=== PATIENT | female | born 1945 | race Caucasian/White ===

== ENCOUNTER 2018-05-16 10:21 | Emergency (ER) | payer OTHER, BC ==
[~2018-05-16] VITALS: Ht 157.5 cm; Wt 87.2 kg
[2018-05-16 10:26] VITALS: TEMP 37; Ht 157.5 cm; Wt 87.2 kg
[2018-05-16] MEDS ORDERED: SODIUM CHLORIDE 0.9% 1000ML 1,000 ML IV STA (11:08)
[2018-05-16] MEDS ORDERED: ONDANSETRON INJ 2 MG/ML 2 ML VIAL IV STA (11:08)
[2018-05-16] MEDS ORDERED: FENTANYL CITRATE INJ 50 MCG/1 ML 2 ML VIAL IV STA (11:08)
--- NOTE | 2018-05-16 11:13 | EMERGENCY ROOM VISIT NOTE ---
History Report prepared by Judith: Sara Houston Under the Supervision of: Dr. Deborah Chavez M.D. First contact with patient: 10:51 Chief Complaint: FALL Stated Complaint: FALL History of Present Illness The patient is a 72 year old female who presents to the Emergency Room with a fall occurring shortly prior to arrival. Per , the patient tripped and fell outside on cement. The patient states that her head hit the wall and then her shoulder hit the wall. She reports that she landed on her shoulder on the ground. The patient states that she was holding a coffee so she did not put her hand out when she fell. Her states that the patient's lip was bleeding and states that one of her plates in her mouth broke. The patient complains of back pain but denies having abdominal pain. She reports that breathing exacerbates her pain. Per , the patient reports that she cannot move her shoulder, she has a heart condition and arthritis. Her states that the patient also has a history of open heart surgery and a bypass surgery. The patient denies a history of back problems. Per , the patient smokes a pack of cigarettes per day and has bronchitis. Nursing staff reports that the patient has a history of cardiac problems. The patient denies a history of kidney problems. Source of History: patient, spouse/significant other Onset: shortly prior to arrival Position: other (generalized) Quality: other (fall) Modifying Factors (Worsening): breathing Associated Symptoms: + back pain, No abdominal pain Review of Systems See HPI for pertinent positives & negatives. A total of 10 systems reviewed and were otherwise negative. Past Medical & Surgical Medical Problems: (1) Arthritis Surgical Problems: (1) History of open heart surgery Family History Patient reports no known family medical history. Social History Smoking Status: Current Every Day Smoker Marital Status: Housing Status: lives with significant other Occupation Status: retired Current/Historical Medications Scheduled Amoxicillin & Pot Clavulanate (Augmentin 875-125 mg), 875 MG PO BID Aspirin (Aspirin Ec), 81 MG PO DAILY Atorvastatin (Lipitor), 10 MG PO DAILY Cefuroxime Axetil (Cefuroxime Axetil), 250 MG PO BID Furosemide (Lasix), 40 MG PO 3XWK Hyoscyamine Sulfate (Levsin), 0.125 MG PO TID Levothyroxine Sodium (Levothyroxine Sodium), 125 MCG PO DAILY Lisinopril (Lisinopril), 10 MG PO DAILY Metoprolol Tartrate (Lopressor) (Lopressor), 25 MG PO BID Pantoprazole (Protonix), 40 MG PO DAILY Potassium Ext Rel (Klor-Con), 20 MEQ PO 3XWK Prednisone (Prednisone Tab), 20 MG PO BID Warfarin Sod (Jantoven), 5 MG PO DAILY Scheduled PRN Hydrocodone/Acetaminophen 5MG/325MG ([place] 5MG/325MG), 1 TABLET PO Q6 PRN for Pain Lidocaine (Lidocaine), 1 PATCH TD QD PRN for Pain Ondasetron Odt (Zofran Odt), 4 MG SL TID PRN for Nausea Tramadol (Ultram), 50 MG PO TID PRN for Pain Allergies Coded Allergies: No Known Allergies (Unverified , 05/16/18) Physical Exam Vital Signs Date Time Temp Pulse Resp B/P (MAP) Pulse Ox O2 Delivery O2 Flow Rate FiO2 05/16/18 15:38 72 18 121/61 94 05/16/18 14:00 67 18 138/64 92 Room Air 05/16/18 12:25 61 20 126/68 96 Nasal Cannula 2.0 05/16/18 12:10 72 05/16/18 10:26 37.0 74 24 142/77 94 Room Air Physical Exam Vital signs reviewed. General: Generally well-appearing 72-year-old female, in some discomfort. Boarded and collared. HEENT: No scleral icterus, PERRLA, neck supple. Contusion noted to the upper lip, dentures removed, noted to be cracked to the upper set. No active bleeding in mouth. Small abrasion to the right scalp. Cardiovascular: Regular rate and rhythm, no extra sounds. Pulmonary: Rhonchorous breath sounds bilaterally, normal work of breathing. Abdomen: Soft, nontender, nondistended, positive bowel sounds. Musculoskeletal: Cervical, thoracic and lumbar spine are palpated, tenderness to the c spine and lumbar spine diffusely, no step-off or deformity appreciated. No swelling. No pain with pelvic rocking. Pain to any palpitation or range of motion to the left shoulder. Neurologic: Patient awake alert and oriented x 3, full strength in all 4 extremities. Skin: Warm, dry, no rash. No significant abrasions/laceration. Medical Decision & Procedures ER Provider Diagnostic Interpretation: Radiology results as stated below per my review and radiologist interpretation: L SHOULDER MIN 2 VIEWS ROUTINE CLINICAL HISTORY: Left shoulder pain following fall. COMPARISON: None FINDINGS: Alignment of the left acromioclavicular and glenohumeral joints is anatomic. There is an acute comminuted mildly displaced proximal left humeral fracture that involves the greater tuberosity and extends to the humeral neck. IMPRESSION: Acute comminuted mildly displaced proximal left humeral fracture that involves the greater tuberosity extends to the humeral neck. Electronically signed by: Adam Nelson M.D. 05/16/2018 11:55 AM Dictated Date/Time: 05/16/2018 11:[address] OF THE ABDOMEN AND PELVIS WITH CONTRAST CLINICAL HISTORY: Trauma. COMPARISON STUDY: None. TECHNIQUE: Following IV administration of 91 mL of Optiray-320, axial images of the abdomen and pelvis were obtained from the lung bases to the proximal femurs. Images were reviewed in the axial, sagittal, and coronal planes. IV contrast was administered without complication. A dose lowering technique was utilized adhering to the principles of ALARA. Oral contrast was administered. FINDINGS: No hemoperitoneum or pneumoperitoneum is present. The chest CT will be reported separately. Mild biliary ductal dilatation is likely related to prior cholecystectomy. There is no evidence for traumatic injury to the liver, spleen, adrenal glands, kidneys or pancreas. Caliber and wall thickness of small and large bowel are normal. IVC filter is in place. There is extensive atherosclerotic plaque of the aortoiliac system. No acute pelvic fracture is identified. When counting from above, there are T12 and L1 compression fractures with mild retropulsion at the L1 level. These fractures are likely old. No acute lumbar spine fractures identified. IMPRESSION: 1. No acute traumatic findings within the abdomen or pelvis. 2. T12 and L1 compression fractures which are likely old. Electronically signed by: Adam Nelson M.D. 05/16/2018 12:51 PM Dictated Date/Time: 05/16/2018 12:[address] OF THE CERVICAL SPINE WITHOUT CONTRAST CLINICAL HISTORY: Neck pain following fall. COMPARISON STUDY: No previous studies for comparison. TECHNIQUE: Helical axial images of the cervical spine were obtained without IV contrast. Sagittal and coronal reconstructions were viewed. A dose lowering technique was utilized adhering to the principles of ALARA. FINDINGS: The patient is status post C6-C7 fusion. Craniocervical junction is intact. There is no acute cervical spine fracture or subluxation. There is no prevertebral edema. Chest CT will be reported separately. Mild to moderate multilevel degenerative disc disease and facet arthrosis is present. Right mastoid air cells are partially opacified. IMPRESSION: 1. No acute cervical spine fracture or subluxation. 2. Status post C6-C7 fusion. Electronically signed by: Adam Nelson M.D. 05/16/2018 12:26 PM Dictated Date/Time: 05/16/2018 12:[address] OF THE CHEST WITH IV CONTRAST CLINICAL HISTORY: Fall, cough, CHI. COMPARISON STUDY: No previous studies for comparison. TECHNIQUE: Following IV administration of 91 mL of Optiray-320, helical axial images of the chest were obtained. Sagittal and coronal reconstructions were viewed as well as maximal intensity projections on an independent 3-D workstation. A dose lowering technique was utilized adhering to the principles of ALARA. FINDINGS: There is no evidence for traumatic injury to the thoracic aorta. No pneumothorax is present. There may be a trace hyperdense left pleural effusion versus pleural thickening. Mild emphysema is noted. No pulmonary contusion is present. Subpleural opacities reflect atelectasis or scarring. Note is made of an acute mildly displaced comminuted proximal left humeral fracture. There are median sternotomy wires and postoperative findings consistent with bypass grafting. Heart is moderately enlarged. There is no pericardial effusion. Note is made of a T10 compression fracture with 30% loss of vertebral body height. There is no significant retropulsion. No extension into the posterior elements is noted. A mild superior plate T12 compression fracture is likely old. There is mild emphysema. IMPRESSION: 1. No evidence of traumatic injury to the thoracic aorta. 2. No pneumothorax. 3. Apparent left pleural thickening. Alternatively, this could reflect a trace left hemothorax. No pneumothorax. No acute left rib fractures identified. 4. Mild T5 compression fracture without significant retropulsion. This fracture is likely acute. 5. Mild T12 compression fracture which is likely old. 6. Acute mildly displaced comminuted proximal left humeral fracture. Electronically signed by: Adam Nelson M.D. 05/16/2018 12:38 PM Dictated Date/Time: 05/16/2018 12:[address] OF THE HEAD WITHOUT CONTRAST CLINICAL HISTORY: L shoulder pain, fall, coumadin. COMPARISON STUDY: No previous studies for comparison. TECHNIQUE: Helical axial images of the head were obtained without IV contrast. Automated exposure control was utilized for the study. A dose lowering technique was utilized adhering to the principles of ALARA. FINDINGS: No acute intracranial hemorrhage, midline shift or mass effect is present. Ventricular system is unremarkable for age. Basilar cisterns are patent. There are no extra-axial collections. There is mild bilateral basal ganglia calcification. There is no calvarial fracture. There is mild age indeterminate deformity of the left nasal bone. Right maxillary sinus is diminutive with mucosal thickening. Secretions within the left maxillary sinus with small air-fluid level are noted. Right mastoid air cells are partially opacified. IMPRESSION: 1. No acute intracranial findings. 2. No calvarial fracture. 3. Age-indeterminate deformity of the left nasal bone. 4. Partially opacified right mastoid air cells. 5. Sinus opacification, as described above. Electronically signed by: Adam Nelson M.D. 05/16/2018 12:23 PM Dictated Date/Time: 05/16/2018 12:[address] CLINICAL HISTORY: fall, back pain COMPARISON STUDY: No previous studies for comparison. TECHNIQUE: Axial images of the lumbar spine were obtained. Sagittal and coronal reconstructions were viewed. FINDINGS: The CT of the abdomen and pelvis will be reported separately. When counting from above, there mild compression fractures of T12 and L1. There is mild retropulsion at the L1 level. These fractures are likely old. No acute lumbar spine fracture is identified. Moderate multilevel degenerative disc disease and facet arthrosis is present. IMPRESSION: 1. No acute lumbar spine fracture or subluxation. 2. T12 and L1 compression fractures which are likely old. Electronically signed by: Adam Nelson M.D. 05/16/2018 12:53 PM Dictated Date/Time: 05/16/2018 12:[address] CLINICAL HISTORY: Fall. COMPARISON STUDY: No previous studies for comparison. TECHNIQUE: Axial images of the thoracic spine were obtained. Sagittal and coronal reconstructions were viewed. FINDINGS: Note is made of a mild T5 compression fracture with 30% loss of vertebral body height. There is no retropulsion or extension into the posterior elements. There is mild prevertebral infiltration. A mild compression fracture involving the superior plate of T12 is likely old. The chest CT will be reported separately. IMPRESSION: 1. Mild T5 compression fracture with 30% loss of vertebral body height. This fracture is likely acute. 2. Mild T12 compression fracture which is likely old. Electronically signed by: Adam Nelson M.D. 05/16/2018 12:44 PM Dictated Date/Time: 05/16/2018 12:42 PM Laboratory Results 05/16/18 10:39 Red Blood Count 4.35, Mean Corpuscular Volume 87.4, Mean Corpuscular Hemoglobin 28.3, Mean Corpuscular Hemoglobin Concent 32.4, Mean Platelet Volume 10.5, Neutrophils (%) (Auto) 63.1, Lymphocytes (%) (Auto) 25.5, Monocytes (%) (Auto) 8.7, Eosinophils (%) (Auto) 1.3, Basophils (%) (Auto) 0.1, Neutrophils # (Auto) 12.39, Lymphocytes # (Auto) 5.00, Monocytes # (Auto) 1.71, Eosinophils # (Auto) 0.26, Basophils # (Auto) 0.02 05/16/18 10:39 Test 05/16/18 10:39 05/16/18 12:35 White Blood Count 19.63 K/uL (4.8-10.8) Red Blood Count 4.35 M/uL (4.2-5.4) Hemoglobin 12.3 g/dL (12.0-16.0) Hematocrit 38.0 % (37-47) Mean Corpuscular Volume 87.4 fL (80-100) Mean Corpuscular Hemoglobin 28.3 pg (25-34) Mean Corpuscular Hemoglobin Concent 32.4 g/dl (32-36) Platelet Count 330 K/uL (130-400) Mean Platelet Volume 10.5 fL (7.4-10.4) Neutrophils (%) (Auto) 63.1 % Lymphocytes (%) (Auto) 25.5 % Monocytes (%) (Auto) 8.7 % Eosinophils (%) (Auto) 1.3 % Basophils (%) (Auto) 0.1 % Neutrophils # (Auto) 12.39 K/uL (1.4-6.5) Lymphocytes # (Auto) 5.00 K/uL (1.2-3.4) Monocytes # (Auto) 1.71 K/uL (0.11-0.59) Eosinophils # (Auto) 0.26 K/uL (0-0.5) Basophils # (Auto) 0.02 K/uL (0-0.2) RDW Standard Deviation 45.4 fL (36.4-46.3) RDW Coefficient of Variation 14.5 % (11.5-14.5) Immature Granulocyte % (Auto) 1.3 % Immature Granulocyte # (Auto) 0.25 K/uL (0.00-0.02) Blood Smear Review Prothrombin Time 11.3 SECONDS (9.0-12.0) Prothromb Time International Ratio 1.1 (0.9-1.1) Activated Partial Thromboplast Time 22.2 SECONDS (21.0-31.0) Partial Thromboplastin Ratio 0.9 Anion Gap 8.0 mmol/L (3-11) Est Creatinine Clear Calc Drug Dose 42.9 ml/min Estimated GFR () 52.6 Estimated GFR (Non- 45.4 BUN/Creatinine Ratio 24.7 (10-20) Calcium Level 8.9 mg/dl (8.5-10.1) Magnesium Level 1.2 mg/dl (1.8-2.4) Total Bilirubin 0.5 mg/dl (0.2-1) Direct Bilirubin 0.2 mg/dl (0-0.2) Aspartate Amino Transf (AST/SGOT) 22 U/L (15-37) Alanine Aminotransferase (ALT/SGPT) 21 U/L (12-78) Alkaline Phosphatase 76 U/L (45-117) Total Protein 6.8 gm/dl (6.4-8.2) Albumin 3.0 gm/dl (3.4-5.0) Urine Color YELLOW Urine Appearance CLEAR (CLEAR) Urine pH 5.0 (4.5-7.5) Urine Specific [place] 1.037 (1.000-1.030) Urine Protein NEG (NEG) Urine Glucose (UA) NEG (NEG) Urine Ketones TRACE (NEG) Urine Occult Blood NEG (NEG) Urine Nitrite NEG (NEG) Urine Bilirubin NEG (NEG) Urine Urobilinogen NEG (NEG) Urine Leukocyte Esterase NEG (NEG) Laboratory results per my review. Medications Administered Medications (Trade) Dose Ordered Sig/Kary Route Start Time Stop Time Status Last Admin Dose Admin Sodium Chloride 1,000 ml @ 125 mls/hr Q8H STAT IV 05/16/18 11:08 05/16/18 16:41 DC 05/16/18 12:21 125 MLS/HR Fentanyl Citrate (Fentanyl Inj) 50 mcg NOW STAT IV 05/16/18 11:08 05/16/18 11:12 DC 05/16/18 11:19 50 MCG Ondansetron HCl (Zofran Inj) 4 mg NOW STAT IV 05/16/18 11:08 05/16/18 11:12 DC 05/16/18 11:18 4 MG Magnesium Sulfate (Magnesium Sulfate 1gm / D5W) 2 gm NOW STAT IV 05/16/18 12:09 05/16/18 12:11 DC 05/16/18 12:18 2 GM Fentanyl Citrate (Fentanyl Inj) 50 mcg Q1H PRN IV 05/16/18 12:15 05/16/18 16:41 DC 05/16/18 12:18 50 MCG Hydromorphone HCl (Dilaudid Inj) 0.5 mg NOW STAT IV 05/16/18 13:38 05/16/18 13:40 DC 05/16/18 13:47 0.5 MG Acetaminophen/ Hydrocodone Bitart ([place] 5/325mg Home Pack) 1 homepack UD ONCE PO 05/16/18 15:00 05/16/18 15:01 DC 05/16/18 15:00 1 HOMEPACK ECG Per My Interpretation Indication: other (trauma) Rate (beats per minute): 67 Rhythm: sinus rhythm Findings: nonspecific-ST abn (Lateral), no acute ischemic change, other (short GA interval, T wave abnormality in inferior leads) ED Course 1103: Past medical records reviewed. The patient was evaluated in room B2. A complete history and physical examination was performed. 1337: I reevaluated the patient and updated her. 1415: I discussed findings with the patient. She verbalized agreement of the treatment plan. She was discharged home. Medical Decision Differential diagnosis: Etiologies such as fracture, dislocation, intra-abdominal, pneumothorax, intrathoracic , intracranial, neurologic, as well as other traumatic pathologies were entertained. This patient was evaluated and appeared to be in no significant distress. IV access was obtained and laboratory work was drawn. The patient was placed on the residential monitor and found to be in a normal sinus rhythm. She was hydrated with normal saline solution. The patient was kitchen scanned including CT scan of the cervical, thoracic and lumbar spine. There is evidence of a T5 compression fracture that is likely the source of the patient's back pain. She does have some evidence of sinusitis as well as a right humeral head fracture. Patient tolerated an ambulation trial. She will have the assistance of her family. She was feeling somewhat improved after IV hydration and did ask for a dose of IV Dilaudid which she has had in the past. Patient was discharged with prescriptions for [place] and Lidoderm patch, Augmentin for sinusitis. She was advised to seek consultation with orthopedic surgery regarding the compression fracture and left humeral fracture upon her return home to [place]. Patient was discharged to the care of her family members and will return to the ED for worsening of symptoms or any medical concerns. Medication Reconcilliation Current Medication List: was personally reviewed by me Blood Pressure Screening Patient's blood pressure: Elevated blood pressure Blood pressure disposition: Elevated BP felt to be situational Impression Primary Impression: Traumatic compression fracture of T5 thoracic vertebra Additional Impressions: Sinusitis Tobacco dependency Left humeral fracture Scribe Attestation The scribe's documentation has been prepared under my direction and personally reviewed by me in its entirety. I confirm that the note above accurately reflects all work, treatment, procedures, and medical decision making performed by me. Departure Information Dispostion Home / Self-Care Prescriptions Lidocaine (Lidocaine) 1 Patch Tdsy 1 PATCH TD QD Y for Pain, #30 PATCH 5% lidoderm patch. May remain on skin for 12 hours of any 24 hour period. Prov: Deborah Chavez M.D. 05/16/18 Hydrocodone/Acetaminophen 5MG/325MG ([place] 5MG/325MG) Tab 1 TABLET PO Q6 Y for Pain, #14 TAB Prov: Deborah Chavez M.D. 05/16/18 Amoxicillin & Pot Clavulanate (Augmentin 875-125 mg) 1 Tab Tab 875 MG PO BID for 10 Days, #20 TAB Prov: Deborah Chavez M.D. 05/16/18 Referrals No Doctor, Assigned (PCP) Forms HOME CARE DOCUMENTATION FORM, IMPORTANT VISIT INFORMATION Patient Instructions My [facility] Additional Instructions Diagnosis: Right humeral head fracture, T5 compression fracture, sinusitis, tobacco dependency, subtherapeutic INR (low Coumadin level) Please stop smoking. Your Coumadin level is not therapeutic. Please double your dose this evening and follow-up with your primary care physician this week for repeat blood work. Augmentin 875 mg twice daily for 10 days. [place] 1 tab every 6 hours as needed for severe pain. Do not drive or take Tylenol with this medication. Lidoderm patch to the left shoulder for no more than 12 hours daily. Colace 100 mg twice daily for stool softening. This is [id number]. Wear the shoulder immobilizer unless bathing. Ice intermittently for the next 24-48 hours. Please follow-up with your primary care physician for reevaluation of the injuries. You will also need orthopedic evaluation upon return home. Return to the emergency department for worsening of symptoms or any medical concerns. Problem Qualifiers
[2018-05-16] MEDS ORDERED: OPTIRAY 320 IV PRN (11:15)
[2018-05-16] MEDS ORDERED: LISI-461 PO (11:17)
[2018-05-16] MEDS ORDERED: HYOS1TAB PO (11:17)
[2018-05-16] MEDS ORDERED: PANT40TA PO (11:17)
[2018-05-16] MEDS ORDERED: CFT250 PO (11:17)
[2018-05-16] MEDS ORDERED: ASPI81TA28 PO (11:17)
[2018-05-16] MEDS ORDERED: LEVO125T5 PO (11:17)
[2018-05-16] MEDS ORDERED: PRED20TA2 PO (11:17)
[2018-05-16] MEDS ORDERED: POTA-639 PO (11:17)
[2018-05-16] MEDS ORDERED: METO25TA56 PO (11:17)
[2018-05-16] MEDS ORDERED: ATOR10TA82 PO (11:17)
[2018-05-16] MEDS ORDERED: TRAM-10 PO (11:17)
[2018-05-16] MEDS ORDERED: FRS/40 PO (11:17)
[2018-05-16] MEDS ORDERED: WARF5TAB7 PO (11:17)
[2018-05-16] MEDS ORDERED: ONDA4TAB10 SL (11:17)
[2018-05-16 11:19] LABS: HEMOGLOBIN 12.3 g/dL (12.0-16.0); MEAN CELL VOLUME 87.4 fL (80-100); MEAN CORPUSCULAR HEMOGLOBIN 28.3 pg (25-34); MEAN CORPUSCULAR HGB CONC 32.4 g/dl (32-36); MEAN PLATELET VOLUME 10.5 fL (7.4-10.4); PLATELET COUNT 330 K/uL (130-400); RED CELL DISTRIBUTION WIDTH CV 14.5 % (11.5-14.5); RED CELL DISTRIBUTION WIDTH SD 45.4 fL (36.4-46.3); WHITE BLOOD COUNT 19.63 K/uL (4.8-10.8)
[2018-05-16 11:27] LABS: INR 1.1 (0.9-1.1); PTT PATIENT 22.2 SECONDS (21.0-31.0)
[2018-05-16 11:29] LABS: CALCIUM 8.9 mg/dl (8.5-10.1); CREATININE 1.18 mg/dl (0.60-1.20); POTASSIUM 3.8 mmol/L (3.5-5.1); TOTAL PROTEIN 6.8 gm/dl (6.4-8.2)
--- NOTE | 2018-05-16 11:56 | DIAGNOSTIC IMAGING REPORT ---
L SHOULDER MIN 2 VIEWS ROUTINE CLINICAL HISTORY: Left shoulder pain following fall. COMPARISON: None FINDINGS: Alignment of the left acromioclavicular and glenohumeral joints is anatomic. There is an acute comminuted mildly displaced proximal left humeral fracture that involves the greater tuberosity and extends to the humeral neck. IMPRESSION: Acute comminuted mildly displaced proximal left humeral fracture that involves the greater tuberosity extends to the humeral neck. Electronically signed by: Adam Nelson M.D. 05/16/2018 11:55 AM Dictated Date/Time: 05/16/2018 11:53 AM
[2018-05-16 11:59] LABS: BASO % 0.1 %; BASO ABS # 0.02 K/uL (0-0.2); EOS % 1.3 %; EOS ABS # 0.26 K/uL (0-0.5); IG# 0.25 K/uL (0.00-0.02); LYMPH % 25.5 %; MONO % 8.7 %; MONO ABS # 1.71 K/uL (0.11-0.59); NEUT % 63.1 %; NEUT ABS # 12.39 K/uL (1.4-6.5)
[2018-05-16] MEDS ORDERED: MAGNESIUM SULFATE 1GM / D5W 1 GM BAG IV STA (12:09)
[2018-05-16] MEDS ORDERED: FENTANYL CITRATE INJ 50 MCG/1 ML 2 ML VIAL IV PRN (12:15)
--- NOTE | 2018-05-16 12:24 | DIAGNOSTIC IMAGING REPORT ---
CT OF THE HEAD WITHOUT CONTRAST CLINICAL HISTORY: L shoulder pain, fall, coumadin. COMPARISON STUDY: No previous studies for comparison. TECHNIQUE: Helical axial images of the head were obtained without IV contrast. Automated exposure control was utilized for the study. A dose lowering technique was utilized adhering to the principles of ALARA. FINDINGS: No acute intracranial hemorrhage, midline shift or mass effect is present. Ventricular system is unremarkable for age. Basilar cisterns are patent. There are no extra-axial collections. There is mild bilateral basal ganglia calcification. There is no calvarial fracture. There is mild age indeterminate deformity of the left nasal bone. Right maxillary sinus is diminutive with mucosal thickening. Secretions within the left maxillary sinus with small air-fluid level are noted. Right mastoid air cells are partially opacified. IMPRESSION: 1. No acute intracranial findings. 2. No calvarial fracture. 3. Age-indeterminate deformity of the left nasal bone. 4. Partially opacified right mastoid air cells. 5. Sinus opacification, as described above. Electronically signed by: Adam Nelson M.D. 05/16/2018 12:23 PM Dictated Date/Time: 05/16/2018 12:20 PM
--- NOTE | 2018-05-16 12:27 | DIAGNOSTIC IMAGING REPORT ---
CT OF THE CERVICAL SPINE WITHOUT CONTRAST CLINICAL HISTORY: Neck pain following fall. COMPARISON STUDY: No previous studies for comparison. TECHNIQUE: Helical axial images of the cervical spine were obtained without IV contrast. Sagittal and coronal reconstructions were viewed. A dose lowering technique was utilized adhering to the principles of ALARA. FINDINGS: The patient is status post C6-C7 fusion. Craniocervical junction is intact. There is no acute cervical spine fracture or subluxation. There is no prevertebral edema. Chest CT will be reported separately. Mild to moderate multilevel degenerative disc disease and facet arthrosis is present. Right mastoid air cells are partially opacified. IMPRESSION: 1. No acute cervical spine fracture or subluxation. 2. Status post C6-C7 fusion. Electronically signed by: Adam Nelson M.D. 05/16/2018 12:26 PM Dictated Date/Time: 05/16/2018 12:24 PM
--- NOTE | 2018-05-16 12:40 | DIAGNOSTIC IMAGING REPORT ---
CT OF THE CHEST WITH IV CONTRAST CLINICAL HISTORY: Fall, cough, CHI. COMPARISON STUDY: No previous studies for comparison. TECHNIQUE: Following IV administration of 91 mL of Optiray-320, helical axial images of the chest were obtained. Sagittal and coronal reconstructions were viewed as well as maximal intensity projections on an independent 3-D workstation. A dose lowering technique was utilized adhering to the principles of ALARA. FINDINGS: There is no evidence for traumatic injury to the thoracic aorta. No pneumothorax is present. There may be a trace hyperdense left pleural effusion versus pleural thickening. Mild emphysema is noted. No pulmonary contusion is present. Subpleural opacities reflect atelectasis or scarring. Note is made of an acute mildly displaced comminuted proximal left humeral fracture. There are median sternotomy wires and postoperative findings consistent with bypass grafting. Heart is moderately enlarged. There is no pericardial effusion. Note is made of a T10 compression fracture with 30% loss of vertebral body height. There is no significant retropulsion. No extension into the posterior elements is noted. A mild superior plate T12 compression fracture is likely old. There is mild emphysema. IMPRESSION: 1. No evidence of traumatic injury to the thoracic aorta. 2. No pneumothorax. 3. Apparent left pleural thickening. Alternatively, this could reflect a trace left hemothorax. No pneumothorax. No acute left rib fractures identified. 4. Mild T5 compression fracture without significant retropulsion. This fracture is likely acute. 5. Mild T12 compression fracture which is likely old. 6. Acute mildly displaced comminuted proximal left humeral fracture. Electronically signed by: Adam Nelson M.D. 05/16/2018 12:38 PM Dictated Date/Time: 05/16/2018 12:26 PM
--- NOTE | 2018-05-16 12:45 | DIAGNOSTIC IMAGING REPORT ---
THORACIC SPINE CT CLINICAL HISTORY: Fall. COMPARISON STUDY: No previous studies for comparison. TECHNIQUE: Axial images of the thoracic spine were obtained. Sagittal and coronal reconstructions were viewed. FINDINGS: Note is made of a mild T5 compression fracture with 30% loss of vertebral body height. There is no retropulsion or extension into the posterior elements. There is mild prevertebral infiltration. A mild compression fracture involving the superior plate of T12 is likely old. The chest CT will be reported separately. IMPRESSION: 1. Mild T5 compression fracture with 30% loss of vertebral body height. This fracture is likely acute. 2. Mild T12 compression fracture which is likely old. Electronically signed by: Adam Nelson M.D. 05/16/2018 12:44 PM Dictated Date/Time: 05/16/2018 12:42 PM
--- NOTE | 2018-05-16 12:52 | DIAGNOSTIC IMAGING REPORT ---
CT OF THE ABDOMEN AND PELVIS WITH CONTRAST CLINICAL HISTORY: Trauma. COMPARISON STUDY: None. TECHNIQUE: Following IV administration of 91 mL of Optiray-320, axial images of the abdomen and pelvis were obtained from the lung bases to the proximal femurs. Images were reviewed in the axial, sagittal, and coronal planes. IV contrast was administered without complication. A dose lowering technique was utilized adhering to the principles of ALARA. Oral contrast was administered. FINDINGS: No hemoperitoneum or pneumoperitoneum is present. The chest CT will be reported separately. Mild biliary ductal dilatation is likely related to prior cholecystectomy. There is no evidence for traumatic injury to the liver, spleen, adrenal glands, kidneys or pancreas. Caliber and wall thickness of small and large bowel are normal. IVC filter is in place. There is extensive atherosclerotic plaque of the aortoiliac system. No acute pelvic fracture is identified. When counting from above, there are T12 and L1 compression fractures with mild retropulsion at the L1 level. These fractures are likely old. No acute lumbar spine fractures identified. IMPRESSION: 1. No acute traumatic findings within the abdomen or pelvis. 2. T12 and L1 compression fractures which are likely old. Electronically signed by: Adam Nelson M.D. 05/16/2018 12:51 PM Dictated Date/Time: 05/16/2018 12:44 PM
--- NOTE | 2018-05-16 12:54 | DIAGNOSTIC IMAGING REPORT ---
LUMBAR SPINE CT CLINICAL HISTORY: fall, back pain COMPARISON STUDY: No previous studies for comparison. TECHNIQUE: Axial images of the lumbar spine were obtained. Sagittal and coronal reconstructions were viewed. FINDINGS: The CT of the abdomen and pelvis will be reported separately. When counting from above, there mild compression fractures of T12 and L1. There is mild retropulsion at the L1 level. These fractures are likely old. No acute lumbar spine fracture is identified. Moderate multilevel degenerative disc disease and facet arthrosis is present. IMPRESSION: 1. No acute lumbar spine fracture or subluxation. 2. T12 and L1 compression fractures which are likely old. Electronically signed by: Adam Nelson M.D. 05/16/2018 12:53 PM Dictated Date/Time: 05/16/2018 12:51 PM
[2018-05-16] MEDS ORDERED: HYDROmorphone INJ 0.5 MG/0.5 ML SYR IV STA (13:38)
[2018-05-16] MEDS ORDERED: AMOX875T PO (14:02)
[2018-05-16] MEDS ORDERED: HYDR-5688 PO (14:03)
[2018-05-16] MEDS ORDERED: NORCO 5/325MG HOME PACK PO ONE (15:00)
[2018-05-16] MEDS ORDERED: LDDP5 TD (15:00)
[2018-05-16 15:38] VITALS: BP 121/61; PULSE 72; O2SAT 94
== END 2018-05-16 15:40 | disposition home or self-care (01) ==
LOC: C.EDB 10:27
DX: S22.050A Wedge compression fracture of T5-T6 vertebra, initial encounter for closed fracture (principal); J32.9 Chronic sinusitis, unspecified; S42.302A Unspecified fracture of shaft of humerus, left arm, initial encounter for closed fracture; F17.200 Nicotine dependence, unspecified, uncomplicated; W19.XXXA Unspecified fall, initial encounter; Z79.82 Long term (current) use of aspirin; Z79.01 Long term (current) use of anticoagulants; Z51.81 Encounter for therapeutic drug level monitoring